=== PATIENT | female | born 1955 | race Caucasian/White ===

== ENCOUNTER 2019-02-18 12:52 | Outpatient (CLI) | payer BC ==
--- NOTE | 2019-02-18 13:41 | MMO ---
Left Breast MAMMO [facility] LT+RADHA. CLINICAL HISTORY: Patient is 63 years old and is seen for additional evaluation requested from prior study. The patient has no family history of breast cancer. The patient has no personal history of cancer. 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 VIEWS: The views performed were: left craniocaudal spot compression with tomosynthesis; left mediolateral oblique spot compression with tomosynthesis; and left mediolateral with tomosynthesis. FILMS COMPARED: The present examination has been compared to [facility], at [facility] on 01/11/2016, and at [facility] on 03/13/2017 and 02/18/2019. MAMMOGRAM FINDINGS: There are no suspicious masses or areas of architectural distortion seen on additional imaging in upper outer left breast in region of reported abnormality. Ultrasound was performed, and no mass is seen. There are no suspicious masses, suspicious calcifications, or new areas of architectural distortion. IMPRESSION: THERE IS NO MAMMOGRAPHIC EVIDENCE OF MALIGNANCY. A ROUTINE FOLLOW-UP MAMMOGRAM IN 1 YEAR IS RECOMMENDED. THE RESULTS OF THIS EXAM WERE SENT TO THE PATIENT. ACR BI-RADS Category 2 - Benign finding MAMMOGRAPHY NOTE: 1. A negative mammogram report should not delay a biopsy if a dominant of clinically suspicious mass is present. 2. Approximately 10% to 15% of breast cancers are not detected by mammography. 3. Adenosis and dense breasts may obscure an underlying neoplasm. Reported by: CHILANGO SALES MD Electonically Signed: [id number]
--- NOTE | 2019-02-18 14:02 | ULT ---
LIMITED LEFT BREAST ULTRASOUND: 02/18/19 HISTORY: Question area of distortion in the upper outer left breast on mammographic evaluation. COMPARISON: Outside mammograms obtained on 10/30/18 as well as additional views left breast on 02/18/19. FINDINGS: No mass or cystic lesion is seen in the left breast in region of mammographic abnormality. Imaging wa s obtained from the 1 o'clock to 3 o'clock position. Additional mammographic views also demonstrated no evidence of a mass or area of architectural distortion with mammographic findings unchanged when c ompared to multiple prior mammograms. IMPRESSION: BIRADS 2: Benign Finding(s) Routine annual screening mammography (for women over age 40). POS: OFF
== END 2019-02-18 12:53 | disposition home or self-care (01) ==
LOC: BICMAMMO 12:52
PROVIDERS: ATTEND Obstetrics & Gynecology
DX: N63.20 Unspecified lump in the left breast, unspecified quadrant (principal)
CPT/HCPCS: G0279

== ENCOUNTER 2021-01-05 15:19 | Outpatient (CLI) | payer BC | END 2021-01-05 15:20 | disposition home or self-care (01) | LOC: BICMAMMO 15:19 | PROVIDERS: ATTEND Internal Medicine | DX: Z12.31 Encounter for screening mammogram for malignant neoplasm of breast (principal); Z85.3 Personal history of malignant neoplasm of breast | CPT/HCPCS: 77063; 77067 ==